=== PATIENT | female | born 1960 | race Caucasian/White ===

== ENCOUNTER 2017-10-11 19:50 | Emergency (ER) | payer OTHER ==
[~2017-10-11] VITALS: Ht 162.6 cm; Wt 82.3 kg
[2017-10-11 20:38] LABS: HEMATOCRIT 44.4 % (36.0-46.0); HEMOGLOBIN 15.4 G/DL (11.9-15.5); MCH 29.5 PG (29.0-34.0); MCHC 34.7 G/DL (30.0-36.0); MCV 85.1 FL (83-99); PLATELET COUNT 293 K/uL (156-360); RBC DIS.WIDTH-CV 12.5 % (11.8-14.6); RBC DIS.WIDTH-SD 38.3 % (39-53); RED BLOOD COUNT 5.22 M/uL (3.80-5.20); WHITE BLOOD COUNT 12.5 K/uL (4.1-10.2)
[2017-10-11 20:51] LABS: CHLORIDE 101 mEq/L (99-109); POTASSIUM 4.1 mEq/L (3.7-5.4); SODIUM 140 mEq/L (136-147)
[2017-10-11 20:53] LABS: GLUCOSE 186 mg/dL (70-99)
[2017-10-11 20:57] LABS: CREATININE 0.8 mg/dL (0.6-1.3); GFR ESTIMATE (CALCULATED) > 59 mL/min/
[2017-10-11 20:58] LABS: UREA NITROGEN (BUN) 17 mg/dL (9-23)
[2017-10-11 21:18] LABS: APPEARANCE CLEAR ((CLEAR)); BILIRUBIN NEGATIVE; BLOOD NEGATIVE; COLOR YELLOW ((YELLOW)); GLUCOSE (STRIP) 50; KETONES 20; LEUKOCYTES NEGATIVE; NITRITE NEGATIVE; PROTEIN (STRIP) 30; SPECIFIC GRAVITY 1.015 (1.000-1.030); UROBILINOGEN 0.2 MG/DL (0.2-1.0)
[2017-10-11] MEDS ORDERED: ZOFRAN ODT8 MG PO (22:04)
[2017-10-11] MEDS ORDERED: FLOMAX0.4 MG PO (22:04)
[2017-10-11] MEDS ORDERED: PERCOCET 5/31 TABLET PO (22:04)
[2017-10-11 22:18] VITALS: BP 154/104
== END 2017-10-11 22:18 | disposition home or self-care (01) ==
LOC: EME 19:50 → RME 19:50
PROVIDERS: Physician Assistant
DX: N13.2 Hydronephrosis with renal and ureteral calculous obstruction (principal); Z90.49 Acquired absence of other specified parts of digestive tract; Z95.9 Presence of cardiac and vascular implant and graft, unspecified
CPT/HCPCS: 74176; 80048; 81003; 85027; 99281; 99285; J1885; J2405; J3010